=== PATIENT | female | born 1995 | race Caucasian/White ===

== ENCOUNTER 2022-06-15 09:12 | Inpatient (IN) ==
[2022-06-15] MEDS ORDERED: OXYTOCIN 30 UNITS/500 ML BAG IV PRN ×3 (09:54→22:10)
[2022-06-15] MEDS ORDERED: LIDOCAINE 1% LOCAL 20 ML VIAL INFIL PRN (09:54)
[2022-06-15] MEDS: LACTATED RINGER'S 1,000 ML IV PRN ×4 (10:00→18:06)
[2022-06-15] MEDS ORDERED: BUPIVACAINE 0.25% 30 ML VIAL ONE (10:05)
[2022-06-15] MEDS ORDERED: LIDOCAINE 2%/EPINEPHRINE 1:200,000 20 ML SDV ONE (10:05)
[2022-06-15] MEDS ORDERED: SODIUM CHLORIDE 0.9% INJ 10 ML VIAL ONE (10:05)
[2022-06-15] MEDS ORDERED: ePHEDrine sulfate 50 MG/ML AMP ONE (10:05)
[2022-06-15] MEDS ORDERED: fentaNYL citrate 100 MCG/2 ML VIAL ONE (10:05)
[2022-06-15] MEDS ORDERED: fentaNYL 2MCG/ML ROPIVACAINE 1.25MG/ML 100 ML BAG EPI ONE (10:06)
[2022-06-15 10:28] LABS: Hematocrit (blood only) 37.6 % (34.1-44.9); Hemoglobin 12.9 g/dl (12.0-16.0); Mean Corpuscular Hemoglobin 31.2 pg (25.0-34.0); Mean Corpuscular Hgb Conc 34.3 g/dL (32.0-36.0); Mean Platelet Volume 9.7 fL (9.4-12.3); Platelet Count 250 K/uL (130-400); RDW Coefficient of Variation 13.8 % (11.5-14.5); RDW Standard Deviation 46.4 fL (36.4-46.3); Red Blood Count 4.13 M/uL (3.93-5.22); White Blood Count 18.62 K/ul (4.8-10.8)
[2022-06-15] MEDS ORDERED: diphenhydrAMINE 50 MG/ML VIAL IV PRN (10:39)
[2022-06-15] MEDS ORDERED: fentaNYL 2MCG/ML ROPIVACAINE 1.25MG/ML 100 ML BAG EPI PRN (10:39)
[2022-06-15] MEDS ORDERED: NALOXONE HCL 1 MG in SODIUM CHLORIDE 0.9% 1000ML 1,000 ML IV PRN (10:39)
[2022-06-15] MEDS ORDERED: ONDANSETRON INJ 2 MG/ML 2 ML VIAL IV PRN (10:39)
[2022-06-15] MEDS ORDERED: NALBUPHINE HCL INJ 10 MG/ML AMP IV PRN (10:39)
[2022-06-15] MEDS ORDERED: NALOXONE HCL 0.4 MG/1 ML VIAL/CARP IV PRN (10:39)
[2022-06-15] MEDS ORDERED: ePHEDrine sulfate 50 MG/ML AMP IV PRN (10:39)
--- NOTE | 2022-06-15 10:39 | Anesthesiology Consultation ---
Date of Service June 15, 2022 Assessment & Plan ASA ASA2 Proposed Anesthesia Anesthesia Type: Labor Epidural Risk / Benefits Reviewed With: PT / POA / Parent / Guardian, Accepts Plan and Informed Consent Obtained History Height/Weight Height: 5 ft 7 in Weight: 106.141 kg Allergies Allergy/AdvReac Type Severity Reaction Status Date / Time No Known Allergies Allergy Unverified 06/15/22 09:40 Medications Home Medications Medication Instructions Recorded Confirmed Last Taken lansoprazole 30 mg capsule,delayed 30 mg PO DAILY 06/15/22 06/15/22 06/14/22 08:00 release prenat.vits,jesús,[id number] 1 tab PO HS 06/15/22 06/15/22 06/14/22 08:00 sertraline 25 mg tablet (Zoloft) 25 mg PO DAILY 06/15/22 06/15/22 06/14/22 08:00 Active Medications Generic Name Dose Route Start Last Admin Trade Name Freq PRN Reason Stop Dose Admin Lactated Ringer's 1,000 mls @ 125 mls/hr 06/15/22 09:54 06/15/22 11:37 Lr IV 06/17/22 09:53 999 mls/hr .Q8H PRN Infusion L&D Protocol Protocol Past Medical History Medical History Depression Hx of fracture of pelvis Exercise / Class Metabolic Activity II 4-5 Yardwork/Stairs/Walk up hill Past Surgical History Surgical History History of tonsillectomy and adenoidectomy Past Anesthesia History No Hx of Anesthesia Complications and No Family Hx of Anesthesia Complications History of PONV No Hx of PONV and No Hx of Motion Sickness Social History Smoking Status: Never smoker Hx Alcohol Use: No Hx Substance Use: No Review of Systems denies fever/cough/ colds/ chest pain/ SOB/ KIMI denies KIMI Physical Exam Vital Signs Last Vital Signs Temp 37.4 C 06/15/22 11:24 Pulse 112 H 06/15/22 11:36 Resp 18 06/15/22 11:30 BP 92/58 L 06/15/22 11:36 Pulse Ox 94 06/15/22 11:35 ENMT Mouth: no TMJ abnormality and no dentition abnormality Thyromental Distance: > or= 3.5 Finger Breadths Mallampati Class: II Neck neck extension not limited Respiratory normal respiratory effort; no respiratory distress Auscultation: lungs clear to auscultation bilaterally Cardiovascular Rate/Rhythm: regular rate and regular rhythm Neurologic moves all extremities Psychiatric Orientation: alert and oriented x 3 Testing Laboratory Results 06/15/22 10:06 Blood Type A Negative 06/15/22 10:06 Antibody Screen NEGATIVE 06/15/22 10:06
--- NOTE | 2022-06-15 13:08 | History & Physical Report ---
Date of Service June 15, 2022 Assessment & Plan (1) Currently : Plan: admit in labor (2) COVID-19 affecting in third trimester: Admission and Anticipated Discharge Date Admission Date: June 15, 2022 History of Present Illness Chief Complaint: labor Primary Care Provider: LUAN PCP 26 F [id number] at 39.4 weeks admitted in labor. She is Covid positive, GBS negative Allergies Allergy/AdvReac Type Severity Reaction Status Date / Time No Known Allergies Allergy Unverified 06/15/22 13:03 Home Medications Medication Instructions Recorded Confirmed Type lansoprazole 30 mg capsule,delayed 30 mg PO DAILY 06/15/22 06/15/22 History release prenat.vits,jesús,[id number] 1 tab PO HS 06/15/22 06/15/22 History sertraline 25 mg tablet (Zoloft) 25 mg PO DAILY 06/15/22 06/15/22 History Patient History Medical History Depression Hx of fracture of pelvis Surgical History History of tonsillectomy and adenoidectomy Social History Smoking Status: Never smoker Hx Alcohol Use: No Hx Substance Use: No Preferred Language: Irish Communication Ability: Effective Supervisory Historian Required: No Beliefs That Will Affect Care: None marital status: Single Current Living Situation: Significant Other Other Information That Helps Us Care for You: No Feels Safe at Home: Yes Safety Concerns: Feels Safe At This Time Assistive Devices: None OB History primip [employer] History neg Review of Systems All systems reviewed & are unremarkable except as noted in HPI & below Physical Exam Constitutional: WD/WN, vitals as above Eyes: PERRL, conjunctivae normal, anicteric sclerae Respiratory: normal respiratory effort, lungs clear to auscultation Cardiovascular: RRR, no murmur, no edema Gastrointestinal (Abdomen): normal bowel sounds, soft, nontender, no hepatosplenomegaly Musculoskeletal: Extremities: extremities normal to inspection Skin: no rashes, warm and dry Neurologic: patellar DTR's 2+ bilat, sensation intact Psychiatric: A+Ox3, euthymic affect Genitourinary: OB Exam Abdomen: + fundal height and + vertex Manual OB Exam: + cervical dilation 6 cm, + cervical effacement 100%, + station -2 and + amniotic fluid meconium OB Exam Monitor Tracing: + external FHT monitor used, + external uterine monitor used, + category I and + normal FHT variability AROM with Amni-hook light meconium noted Results & Data ([facility]) Vital Signs (Past 12 Hours) Vital Signs Temp Pulse Resp BP Pulse Ox 06/15/22 12:55 84 95 06/15/22 12:50 111 H 95 06/15/22 12:49 96 H 122/74 06/15/22 12:45 85 92 06/15/22 12:43 91 H 89 L 06/15/22 12:40 92 H 91 06/15/22 12:35 92 H 92 06/15/22 12:34 100 H 105/56 L 06/15/22 12:30 20 06/15/22 12:30 105 H 20 94 06/15/22 12:25 91 H 92 06/15/22 12:20 92 06/15/22 12:20 89 06/15/22 12:20 86 89 L 06/15/22 12:19 109 H 99/54 L 06/15/22 12:15 99 H 97 06/15/22 12:10 110 H 94 06/15/22 12:05 108 H 96 06/15/22 12:04 92 H 123/70 06/15/22 12:00 20 06/15/22 12:00 98 H 20 96 06/15/22 11:55 101 H 96 06/15/22 11:50 92 H 94 06/15/22 11:48 85 124/66 06/15/22 11:45 20 06/15/22 11:45 101 H 20 124/68 95 06/15/22 11:44 92 H 88 L 06/15/22 11:40 102 H 18 127/66 94 06/15/22 11:38 115 H 06/15/22 11:38 95 H 118/83 87 L 06/15/22 11:36 112 H 92/58 L 06/15/22 11:35 113 H 94 06/15/22 11:34 103 H 109/59 L 06/15/22 11:32 96 H 134/63 06/15/22 11:30 95 H 18 112/56 L 92 06/15/22 11:28 100 H 122/67 06/15/22 11:26 92 H 130/70 06/15/22 11:25 94 H 93 06/15/22 11:24 20 06/15/22 11:24 37.4 C 100 H 20 125/67 06/15/22 11:22 93 H 136/76 06/15/22 11:20 96 06/15/22 11:20 98 H 06/15/22 11:20 88 131/63 06/15/22 11:15 83 95 06/15/22 11:10 94 H 94 06/15/22 11:05 84 95 06/15/22 11:00 97 H 95 06/15/22 10:55 88 96 06/15/22 10:50 88 98 06/15/22 10:45 91 H 95 06/15/22 10:40 84 97 06/15/22 10:35 89 97 06/15/22 10:30 95 H 96 06/15/22 10:25 90 96 06/15/22 10:20 95 H 96 06/15/22 10:15 94 06/15/22 10:15 93 H 06/15/22 10:15 94 H 93 06/15/22 10:10 93 H 98 06/15/22 10:05 90 97 06/15/22 10:00 93 H 97 06/15/22 09:55 96 H 98 06/15/22 09:50 93 H 98 06/15/22 09:45 90 99 06/15/22 09:23 20 06/15/22 09:23 37.6 C H 20 06/15/22 09:40 86 97 06/15/22 09:35 94 H 97 06/15/22 09:30 94 H 96 06/15/22 09:25 110 H 97 06/15/22 09:23 98 H 129/75 Laboratory Results Laboratory Results - last 48 hr 06/15/22 06/15/22 06/15/22 10:00 10:06 10:06 WBC 18.62 H RBC 4.13 Hgb 12.9 Hct 37.6 MCV 91.0 MCH 31.2 MCHC 34.3 RDW Std Deviation 46.4 H RDW Coeff of Jonah 13.8 Plt Count 250 MPV 9.7 SARS-CoV-2 (PCR) POSITIVE A* Blood Type A Negative Antibody Screen NEGATIVE Code Status & VTE Plan VTE Prophylaxis Plan VTE Prophylaxis will be ordered: No Monitoring External Monitor Cat 1
--- NOTE | 2022-06-15 21:56 | Delivery Summary ---
Vaginal Delivery Summary Date of Service June 15, 2022 Vaginal Delivery Summary Delivery Note live female BRANDON over intact perineum with delayed cord clamping and Apgars 8/8 weight pending. Cord blood obtained followed by spontaneous delivery of intact placenta. No tears. EBL 100 ml. Final sponge and instrument count are correct. Mom and baby stable.
[2022-06-15] MEDS ORDERED: DIPHTHERIA/TETANUS/PERTUSSIS 0.5 ML SYR/VIAL IM ONE (22:10)
[2022-06-15] MEDS ORDERED: BENZOCAINE 20% AER SPR 82.5 GM CAN EXT PRN (22:10)
[2022-06-15] MEDS ORDERED: ACETAMINOPHEN 325 MG TAB PO PRN (22:10)
[2022-06-15] MEDS ORDERED: HYDROCORTISONE ACETATE 25 MG SUPP PR PRN (22:10)
[2022-06-15] MEDS ORDERED: bisacodyL 10 MG SUPP PR PRN (22:10)
[2022-06-16] MEDS: IBUPROFEN 600 MG TAB PO PRN ×3 (00:36→20:24)
[2022-06-16 06:37] LABS: Hematocrit (blood only) 32.1 % (34.1-44.9); Hemoglobin 11.1 g/dl (12.0-16.0); Mean Corpuscular Hgb Conc 34.6 g/dL (32.0-36.0); Mean Corpuscular Volume 89.7 fL (80.0-100.0); Mean Platelet Volume 9.6 fL (9.4-12.3); Platelet Count 220 K/uL (130-400); RDW Coefficient of Variation 13.9 % (11.5-14.5); RDW Standard Deviation 45.3 fL (36.4-46.3); Red Blood Count 3.58 M/uL (3.93-5.22); White Blood Count 17.64 K/ul (4.8-10.8)
[2022-06-16] MEDS: PRENATAL VITAMIN 1 TAB PO SCH (08:24)
[2022-06-16] MEDS: FERROUS SULFATE 325 MG TAB PO SCH (08:24)
[2022-06-16] MEDS: DOCUSATE SODIUM 100 MG CAP PO SCH ×2 (08:24→20:25)
[2022-06-16] MEDS: SERTRALINE HCL 50 MG TABLET PO SCH (08:24)
[2022-06-16] MEDS: PANTOprazole 40 MG TAB PO SCH (08:25)
--- NOTE | 2022-06-16 10:26 | Anesthesia Procedure Note ---
Date of Service June 16, 2022 Anesthesia Post Epidural Note Vital Signs Vital Signs: Temp Pulse Resp BP Pulse Ox O2 Del Method 36.9 C 86 18 117/76 98 06/16/22 08:10 06/16/22 08:10 06/16/22 08:10 06/16/22 08:10 06/16/22 08:10 06/16/22 08:10 Pain Intensity Bilateral Abdomen: Pain Intensity: 3 Notes Mental Status: alert / awake / arousable and participated in evaluation Nausea / Vomiting: adequately controlled Pain: adequately controlled Airway Patency, RR, SpO2: stable & adequate BP & HR: stable & adequate Hydration State: stable & adequate Anesthetic Complications: no major complications apparent and Pt Satisfied with anesthetic care Epidural: Removed without complications and With tip intact
[2022-06-16] MEDS ORDERED: bisacodyL 5 MG TABEC PO SCH (20:00)
[2022-06-16] MEDS ORDERED: NON-FORMULARY MEDICATION (Prenat.Vits,Cal,Min-Iron-Folic Tablet) PO SCH (21:00)
--- NOTE | 2022-06-16 21:26 | Labor Progress Brief Note ---
Date of Service June 16, 2022 Subjective Review of Systems All systems reviewed & are unremarkable except as noted in HPI & below Assessment & Plan (1) Normal course: Plan: PPD #1 Pt doing well No complaints anticipate disch AM (2) COVID-19 affecting in third trimester: Plan: Pt is asymptomatic No complaints Expectant managment Admission and Anticipated Discharge Date Admission Date: June 15, 2022 Physical Exam Constitutional: WD/WN, vitals as above well developed and well nourished Eyes: PERRL, conjunctivae normal, anicteric sclerae Neck: trachea midline, no thyromegaly Respiratory: normal respiratory effort, lungs clear to auscultation Auscultation: no crackles, no rales and no wheezes Cardiovascular: RRR, no murmur, no edema Gastrointestinal (Abdomen): normal bowel sounds, soft, nontender, no hepatosplenomegaly Uterus is below umbilicus Musculoskeletal: no cyanosis or clubbing, extremities motor strength 5/5 Skin: no rashes, warm and dry Neurologic: patellar DTR's 2+ bilat, sensation intact Psychiatric: A+Ox3, euthymic affect Genitourinary: normal external appearance [facility] & Data ([facility]) Vital Signs (Past 12 Hours) Vital Signs Temp Pulse Resp BP Pulse Ox O2 Del Method 06/16/22 19:19 36.8 C 88 18 123/76 98 Room Air 06/16/22 15:19 Room Air 06/16/22 15:19 36.8 C 90 18 124/83 97 Room Air 06/16/22 12:30 36.9 C 76 18 117/83 97 Room Air
[2022-06-17] MEDS: IBUPROFEN 600 MG TAB PO PRN ×2 (04:17→15:43)
[2022-06-17 06:29] LABS: Hematocrit (blood only) 36.8 % (34.1-44.9); Hemoglobin 12.5 g/dl (12.0-16.0)
[2022-06-17] MEDS: PRENATAL VITAMIN 1 TAB PO SCH (08:21)
[2022-06-17] MEDS: FERROUS SULFATE 325 MG TAB PO SCH (08:21)
[2022-06-17] MEDS: SERTRALINE HCL 50 MG TABLET PO SCH (08:21)
[2022-06-17] MEDS: DOCUSATE SODIUM 100 MG CAP PO SCH (08:21)
[2022-06-17] MEDS: PANTOprazole 40 MG TAB PO SCH (08:22)
[2022-06-17 08:44] LABS: Basophils # (auto) 0.09 K/uL (0-0.2); Basophils % (auto) 0.7 %; Eosinophils # (auto) 0.39 K/uL (0-0.50); Eosinophils % (auto) 3.1 %; Immature Granulocytes # (auto) 0.27 K/uL (0.00-0.02); Immature Granulocytes % (auto) 2.1 %; Lymphocytes # (auto) 2.98 K/uL (1.2-3.4); Lymphocytes % (auto) 23.5 %; Mean Corpuscular Hemoglobin 30.6 pg (25.0-34.0); Mean Platelet Volume 10.2 fL (9.4-12.3); Monocytes # (auto) 1.02 K/uL (0.24-0.82); Neutrophils # (auto) 7.95 K/uL (1.4-6.5); Neutrophils % (auto) 62.6 %; Platelet Count 250 K/uL (130-400); RDW Coefficient of Variation 14.3 % (11.5-14.5); RDW Standard Deviation 48.4 fL (36.4-46.3); Red Blood Count 4.08 M/uL (3.93-5.22)
--- NOTE | 2022-06-17 08:52 | Obstetrical Progress Note ---
Date of Service June 17, 2022 Assessment & Plan Admission and Anticipated Discharge Date Admission Date: June 15, 2022 Subjective Patient is seen and examined. She feels well, no complaints. Ambulating without dizziness Voiding without difficulty Tolerating regular diet with out N&V Bleeding is minimal No fever/ chills/ CP/ SOB/ N&V/ Leg pain Pumping to breast feed, baby is in Level II Vital Signs Temp Pulse Resp BP Pulse Ox O2 Del Method 06/17/22 04:15 36.5 C 89 18 124/75 98 Room Air 06/17/22 00:30 36.7 C 70 18 114/63 98 Room Air Vital Signs Temp Pulse Resp BP Pulse Ox O2 Del Method 06/17/22 04:15 36.5 C 89 18 124/75 98 Room Air 06/17/22 00:30 36.7 C 70 18 114/63 98 Room Air 06/16/22 19:19 36.8 C 88 18 123/76 98 Room Air 06/16/22 15:19 Room Air 06/16/22 15:19 36.8 C 90 18 124/83 97 Room Air 06/16/22 12:30 36.9 C 76 18 117/83 97 Room Air PE: General: Alert, orientedx3, NAD Abd: soft, NT, fundus firm, below Umbilicus Perineum intact, Lochia rubra minimal Ext; NT, no edema AP: 26 yo s/p , ppd# 2 VSS Afebrile doing well COVID 19 + asymptomatic Continue routine care All questions were answered Discussed when to call D/C home , f/u in office Results & Data ([facility]) Vital Signs (Past 12 Hours) Vital Signs Temp Pulse Resp BP Pulse Ox O2 Del Method 06/17/22 04:15 36.5 C 89 18 124/75 98 Room Air 06/17/22 00:30 36.7 C 70 18 114/63 98 Room Air
[2022-06-17 12:26] LABS: Mean Corpuscular Volume 90.6 fL (80.0-100.0)
== END 2022-06-17 18:44 | disposition home or self-care (01) | DRG 805 ==
LOC: OPB 09:12 → 4S1 09:17 → 4E1 06-16 00:15